=== PATIENT | male | born 1965 | race African-American/Black ===

== ENCOUNTER → 2017-01-31 | Day surgery (SDC) | payer OTHER ==
[2017-01-26 12:38] VITALS: BP 154/90
[2017-01-26 13:16] LABS: BILIRUBIN NEGATIVE (NEGATIVE); BLOOD 3+ (NEGATIVE); CLARITY CLOUDY (CLEAR); COLOR YELLOW (YELLOW); GLUCOSE NEGATIVE (NEGATIVE); KETONE NEGATIVE (NEGATIVE); LEUKO ESTERASE TRACE (NEGATIVE); NITRITE NEGATIVE (NEGATIVE); PH 6.5 (5.0-9.0); PROTEIN 1+ (NEGATIVE); SPECIFIC GRAVITY 1.025 (1.005-1.030); UROBILINOGEN 0.2 E.U./dl (0.2-1.0)
[2017-01-26 14:37] LABS: RBC TNTC rbc/hpf (0-2)
[~2017-01-31] VITALS: Ht 190.5 cm; Wt 113.4 kg
[~2017-01-31] MED LIST: ALBUTEROL0.09 MG/A2 INH; AMOXIL500 MG PO; BACTRIM DS 8001 TA1 PO; CALAN,ISOPTIN80 MG PO; DITROPAN XL5 MG PO; FLEXERIL10 MG PO; FLOMAX0.4 MG PO; HYDROCHLOROTHIA50 MG PO; HYDROCODON-ACETAMINO; HYDROCODONE BIT1 T11 PO; HYDRODIURIL25 MG PO; MACROBID100 M1 PO; NAPROSYN500 MG PO; NORCO 325 MG-101 TAB PO; NORFLEX100 MG PO; NORVASC10 MG PO; OMEPRAZOLE D/R20 MG PO; PERCOCET 325 MG1 TA2 PO; PERCOCET 325 MG1 TA5 PO; ROBITUSSIN AC 110 ML PO; TERAZOSIN HCL5 M1 PO; TOBREX OPHTH S2.5 ML OPH; TRAMADOL HCL50 MG PO; VERAPAMIL240 MG PO; VICODIN ES 7501 TAB PO; ZANAFLEX6 M1 PO; ZOFRAN ODT4 MG SL; ZOFRAN4 MG PO
--- NOTE | ~2017-01-31 | O ---
[place], [place] OPERATIVE NOTE NAME: BRADEN HANNA UNIT #: [id number] ROOM: DOCTOR: SANDRA ALVES MD BIRTHDATE: [birth year] DOS: 01/31/2017 PREOPERATIVE DIAGNOSIS: Status post left ureteroscopy, holmium laser lithotripsy, and stent placement. POSTOPERATIVE DIAGNOSIS: Status post left ureteroscopy, holmium laser lithotripsy, and stent placement. PROCEDURE: Cystoscopy and stent removal. FINDINGS: ____ stent. The KUB shows no evidence of stones. The stent in a proper full position in place. DESCRIPTION OF PROCEDURE: After obtaining satisfactory sedation, the patient was placed in lithotomy position. Genitalia was prepped and draped in sterile manner. A 21 ACMI scope was placed in the bladder without any difficulty. The stent seen coming through the left orifice. It was grasped and removed without any difficulty. SANDRA ALVES MD CM:OPRECORD:OPERATIVE NOTE [id number] SANDRA ALVES MD 01/31/17 1232 interface
[2017-01-31 07:21] VITALS: BP 140/88
[2017-01-31 08:04] VITALS: BP 125/82
[2017-01-31 08:19] VITALS: BP 127/91
[2017-01-31 08:34] VITALS: BP 144/91
== END | disposition home or self-care (01) ==
LOC: SDC 01-13 10:15
PROVIDERS: Urology
DX: Z46.6 Encounter for fitting and adjustment of urinary device (principal); Z96.0 Presence of urogenital implants; I10 Essential (primary) hypertension; Z86.73 Personal history of transient ischemic attack (TIA), and cerebral infarction without residual deficits; K21.9 Gastro-esophageal reflux disease without esophagitis; F41.9 Anxiety disorder, unspecified; F32.9 Major depressive disorder, single episode, unspecified; R56.9 Unspecified convulsions; Z87.01 Personal history of pneumonia (recurrent); Z83.3 Family history of diabetes mellitus; Z82.49 Family history of ischemic heart disease and other diseases of the circulatory system

== ENCOUNTER → 2017-07-13 | Outpatient (CLI) | payer OTHER ==
[2017-07-13 13:30] LABS: BASO % 0.8 % (0.0-1.0); EOS # 0.1 10*3/uL (0.0-0.4); EOS % 1.6 % (1.0-4.0); HEMATOCRIT 47.5 % (42.0-52.0); HEMOGLOBIN 16.6 g/dl (14.0-18.0); LYMPH # 1.4 10*3/uL (1.3-4.4); LYMPH % 35.3 % (27.0-41.0); MEAN CORPUSCULAR HGB 29.7 pg (27.0-31.0); MEAN CORPUSCULAR HGB CONC 34.9 g/dl (33.0-37.0); MEAN PLATELET VOLUME 10.5 fl (9.6-12.3); MONO # 0.3 10*3/uL (0.1-1.0); MONO % 7.3 % (3.0-9.0); NEUT # 2.1 10*3/uL (2.3-7.9); NEUT % 54.7 % (47.0-73.0); PLATELET COUNT AUTOMATED 185 10*3/uL (130-400); RED BLOOD COUNT 5.59 10*6/uL (4.50-5.90); WHITE BLOOD COUNT 3.8 10*3/uL (4.8-10.8)
== END | disposition home or self-care (01) ==
LOC: LAB 12:56
PROVIDERS: Chiropractor Orthopedic
DX: M47.897 Other spondylosis, lumbosacral region (principal); M25.50 Pain in unspecified joint; G89.29 Other chronic pain; E55.9 Vitamin D deficiency, unspecified

== ENCOUNTER → 2017-10-12 | Outpatient (CLI) | payer OTHER | END | disposition home or self-care (01) | LOC: RAD 09:36 | DX: M54.2 Cervicalgia (principal) ==

== ENCOUNTER → 2017-10-18 | Day surgery (SDC) | payer OTHER | END | disposition home or self-care (01) | LOC: RAD 09-22 11:00 → SDC 09-22 11:00 | DX: M16.11 Unilateral primary osteoarthritis, right hip (principal) ==

== ENCOUNTER → 2017-12-22 | Outpatient (CLI) | payer OTHER | END | disposition home or self-care (01) | LOC: US 07:28 | DX: I10 Essential (primary) hypertension (principal); R10.11 Right upper quadrant pain ==

== ENCOUNTER → 2017-12-23 | Outpatient (CLI) | payer OTHER | END | disposition home or self-care (01) | LOC: CARD 01:44 | DX: I77.819 Aortic ectasia, unspecified site (principal); I51.7 Cardiomegaly ==

== ENCOUNTER → 2018-01-26 | Outpatient (CLI) | payer OTHER ==
[2018-01-26 09:01] LABS: CREATININE 0.94 mg/dL (0.70-1.30)
== END | disposition home or self-care (01) ==
LOC: CT 08:31 → LAB 08:31 → CT 09:00
PROVIDERS: Family Medicine
DX: I71.2 Thoracic aortic aneurysm, without rupture (principal); I10 Essential (primary) hypertension

== ENCOUNTER → 2018-04-28 | Outpatient (CLI) | payer OTHER ==
[2018-04-28 10:42] LABS: ALKALINE PHOSPHATASE 116 U/L (45-117); BUN 18 mg/dl (7-24); SGOT/AST 20 IU/L (3-35); SGPT/ALT 32 U/L (12-78); TOTAL PROTEIN 7.3 gm/dL (6.4-8.2); VALPROIC ACID (DEPAKENE) 123.9 ug/ml (50-100)
[2018-04-28 10:45] LABS: CHLORIDE 102 mmol/L (98-107); POTASSIUM 3.2 mmol/L (3.5-5.1); SODIUM 138 mmol/L (136-145)
== END | disposition home or self-care (01) ==
LOC: LAB 04-27 13:23
PROVIDERS: Psychiatry & Neurology Neurology
DX: R56.9 Unspecified convulsions (principal)

== ENCOUNTER → 2018-05-30 | Outpatient (CLI) | payer OTHER | LOC: RAD 07:47 | DX: M16.0 Bilateral primary osteoarthritis of hip (principal) ==

== ENCOUNTER → 2019-03-12 | Outpatient (CLI) | payer OTHER, MEDICARE ==
[2019-03-12 13:26] LABS: BUN 14 mg/dl (7-24); CHLORIDE 106 mmol/L (98-107); CREATININE 1.01 mg/dL (0.70-1.30); POTASSIUM 3.2 mmol/L (3.5-5.1); SODIUM 139 mmol/L (136-145)
== END | disposition home or self-care (01) ==
LOC: LAB 12:44
PROVIDERS: Family Medicine
DX: R73.9 Hyperglycemia, unspecified (principal); I10 Essential (primary) hypertension

== ENCOUNTER → 2019-08-08 | Outpatient (CLI) | payer OTHER, MEDICARE | END | disposition home or self-care (01) | LOC: RAD 21:00 | DX: S13.4XXD Sprain of ligaments of cervical spine, subsequent encounter (principal); X58.XXXD Exposure to other specified factors, subsequent encounter ==

== ENCOUNTER → 2020-04-03 | Outpatient (CLI) | payer OTHER ==
[2020-04-03 11:40] LABS: ALBUMIN 3.6 gm/dl (3.1-4.5); ALKALINE PHOSPHATASE 123 U/L (45-117); BUN 12 mg/dl (7-24); CHLORIDE 106 mmol/L (98-107); CREATININE 0.96 mg/dL (0.70-1.30); POTASSIUM 3.4 mmol/L (3.5-5.1); SGOT/AST 30 IU/L (3-35); SGPT/ALT 54 U/L (12-78); SODIUM 137 mmol/L (136-145); TOTAL PROTEIN 6.9 gm/dL (6.4-8.2)
[2020-04-04 05:06] LABS: TOTAL PROTEIN, SERUM 6.5 g/dL (6.0-8.5)
[2020-04-04 15:08] LABS: A/G RATIO 1.4 (0.7-1.7); ALBUMIN 3.8 g/dL (2.9-4.4); ALPHA-1-GLOBULIN 0.2 g/dL (0.0-0.4); ALPHA-2-GLOBULIN 0.6 g/dL (0.4-1.0); BETA GLOBULIN 1.1 g/dL (0.7-1.3); GAMMA GLOBULIN 0.9 g/dL (0.4-1.8); GLOBULIN, TOTAL 2.7 g/dL (2.2-3.9); M-SPIKE Not Observed g/dL (Not Observed)
== END | disposition home or self-care (01) ==
LOC: LAB 10:56
PROVIDERS: Chiropractor Orthopedic
DX: S13.4XXA Sprain of ligaments of cervical spine, initial encounter (principal); M54.6 Pain in thoracic spine; X58.XXXA Exposure to other specified factors, initial encounter; Y93.89 Activity, other specified; Y92.89 Other specified places as the place of occurrence of the external cause; Y99.8 Other external cause status

== ENCOUNTER → 2020-11-20 | Outpatient (CLI) | payer OTHER ==
[2020-11-20 16:13] LABS: BILIRUBIN Negative (Negative); BLOOD Negative (Negative); CLARITY Clear (Clear); COLOR Dark Yellow (Yellow); GLUCOSE Trace (Negative); KETONE Trace (Negative); LEUKO ESTERASE Negative (Negative); NITRITE Negative (Negative); SPECIFIC GRAVITY >= 1.030 (1.001-1.030)
[2020-11-20 16:26] LABS: BACTERIA TRACE; EPITHELIAL CELLS 0-2; RBC 0-2 rbc/hpf (0-2); WBC 0-2 wbc/hpf (0-5)
== END | disposition home or self-care (01) ==
LOC: LAB 15:39
PROVIDERS: ATTEND Family Medicine
DX: N40.0 Benign prostatic hyperplasia without lower urinary tract symptoms (principal)

== ENCOUNTER → 2022-01-18 | Day surgery (SDC) | payer MEDICARE ==
[2022-01-14 14:48] VITALS: BP 162/96
[2022-01-18] VITALS (8 sets, daily range): BP systolic 142–158; BP diastolic 85–104
[~2022-01-18] VITALS: Ht 190.5 cm; Wt 111.1 kg
[~2022-01-18] MED LIST changes: +COLACE100 MG PO; +METFORMIN HYDR500 MG PO; +PERCOCET 5-3251 EACH PO; +POTASSIUM CHLO20 ME4 PO; +VICO75300 PO
== END | disposition home or self-care (01) ==
LOC: SDC 01-14 14:00
PROVIDERS: ATTEND Surgery
DX: K40.30 Unilateral inguinal hernia, with obstruction, without gangrene, not specified as recurrent (principal); I10 Essential (primary) hypertension; K21.9 Gastro-esophageal reflux disease without esophagitis; F41.9 Anxiety disorder, unspecified; I25.10 Atherosclerotic heart disease of native coronary artery without angina pectoris; Z86.73 Personal history of transient ischemic attack (TIA), and cerebral infarction without residual deficits; F32.9 Major depressive disorder, single episode, unspecified; E11.9 Type 2 diabetes mellitus without complications; Z79.899 Other long term (current) drug therapy

== ENCOUNTER → 2022-02-17 | Outpatient (CLI) | payer MEDICARE ==
[2022-02-17 13:52] LABS: CREATININE 0.85 mg/dL (0.70-1.30)
== END | disposition home or self-care (01) ==
LOC: LAB 12:58 → CT 13:00
PROVIDERS: ATTEND Surgery
DX: Z01.818 Encounter for other preprocedural examination (principal); K40.91 Unilateral inguinal hernia, without obstruction or gangrene, recurrent; K76.0 Fatty (change of) liver, not elsewhere classified; M47.816 Spondylosis without myelopathy or radiculopathy, lumbar region

== ENCOUNTER 2024-12-20 20:40 | Emergency (ER) | payer MEDICARE ==
[~2024-12-20] VITALS: Ht 190.5 cm; Wt 113.4 kg
[2024-12-20 21:10] VITALS: BP 186/104
[2024-12-20 21:53] LABS: HEMATOCRIT 47.2 % (42.0-52.0); MEAN CELL VOLUME 87.6 fl (80.0-94.0); MEAN CORPUSCULAR HGB 29.5 pg (27.0-31.0); MEAN CORPUSCULAR HGB CONC 33.7 g/dl (33.0-37.0); MEAN PLATELET VOLUME 10.1 fl (9.6-12.3); PLATELET COUNT AUTOMATED 134 10*3/uL (130-400); RED BLOOD COUNT 5.39 10*6/uL (4.50-5.90); RED CELL DISTRI WIDTH 12.4 % (0-14.5); WHITE BLOOD COUNT 3.1 10*3/uL (4.8-10.8)
[2024-12-20 21:57] LABS: MANUAL DIFF REFLEX YES
[2024-12-20 21:58] LABS: BILIRUBIN Negative (Negative); BLOOD Negative (Negative); CLARITY Clear (Clear); COLOR Yellow (Yellow); GLUCOSE 3+ (Negative); KETONE Trace (Negative); LEUKO ESTERASE Negative (Negative); NITRITE Negative (Negative); PH 6.5 (4.5-8.0); SPECIFIC GRAVITY >= 1.030 (1.001-1.030)
[2024-12-20 22:07] LABS: WBC 0-2 wbc/hpf (0-5)
[2024-12-20 22:15] LABS: ALKALINE PHOSPHATASE 108 U/L (46-116); ATYPICAL LYMPHS 1 % (0-0); BUN 15 mg/dl (9-23); BURR CELLS FEW; CHLORIDE 104 mmol/L (98-107); LIPASE 70 U/L (12-53); OVALOCYTES FEW; PLATELET SUFFICIENCY NORMAL (NORMAL); POTASSIUM 4.1 mmol/L (3.4-5.1); SGPT/ALT 37 U/L (5-49); TOTAL CELLS COUNTED 100 #CELLS; TOTAL PROTEIN 5.8 gm/dL (6.0-8.0)
[2024-12-20] MEDS ORDERED: HYDROmorphONE Hydrochloride 0.5 MG/0.5 ML SYRINGE IV ONE (22:45)
[2024-12-20] MEDS ORDERED: Ondansetron Hydrochloride 4 MG/2 ML VIAL IV ONE (22:45)
[2024-12-20] MEDS ORDERED: Ondansetron4 MG PO (22:48)
== END 2024-12-20 23:10 | disposition home or self-care (01) ==
LOC: ED 20:40
PROVIDERS: Internal Medicine
DX: K57.30 Diverticulosis of large intestine without perforation or abscess without bleeding (principal); B34.9 Viral infection, unspecified; R74.01 Elevation of levels of liver transaminase levels; I10 Essential (primary) hypertension; R11.2 Nausea with vomiting, unspecified; K21.9 Gastro-esophageal reflux disease without esophagitis; F41.9 Anxiety disorder, unspecified; F32.A Depression, unspecified; E11.9 Type 2 diabetes mellitus without complications; Z87.442 Personal history of urinary calculi; Z86.73 Personal history of transient ischemic attack (TIA), and cerebral infarction without residual deficits; Z98.890 Other specified postprocedural states

== ENCOUNTER → 2025-07-29 | Outpatient (CLI) | payer SELFPAY ==
[~2025-07-29] MED LIST changes: +AMLODIPINE BESYL5 MG PO; +DIOVAN80 M1 PO; +HYDR25T PO; +JARDIANCE25 MG PO; +LOSARTAN POTASS50 M1 PO; +Ondansetron4 MG PO
== END ==
LOC: US 14:30
PROVIDERS: ATTEND Nurse Practitioner Family
DX: I77.89 Other specified disorders of arteries and arterioles (principal); R42 Dizziness and giddiness; I10 Essential (primary) hypertension